=== PATIENT | female | born 1985 | race Caucasian/White ===

== ENCOUNTER 2019-10-10 20:03 | Outpatient (CLI) | payer BC ==
[~2019-10-10] VITALS: Ht 170.2 cm; Wt 126.4 kg
[2019-10-10] MEDS ORDERED: LEXAPRO20 MG PO (20:27)
[2019-10-10] MEDS ORDERED: PRENATAL MVI (20:28)
[2019-10-10 20:30] VITALS: BP 129/70; PULSE 88; TEMP 98.2
[2019-10-10 21:00] VITALS: BP 120/85; PULSE 86
[2019-10-10 21:30] VITALS: BP 131/73; PULSE 81
--- NOTE | 2019-10-10 21:30 | NUR ---
2009- Patient ambulatory to LR5 from ED. Patient oriented to room and into restroom to void and change into gown. 2013- EFM and TOCO on and tracing. Patient has complaints of contractions every 5 minutes for the last hour. Patient states baby is "moving a lot." Patient denies LOF, bleeding, or spotting. 2024- SVE CL/-3 by SUNITA Christensen. 2109- See Physician Notification. 2124- SVE CL/-3 by SUNITA Christensen. SVE unchanged from previous SVE. 2129- EFM and TOCO off. Discharge instructions explained to patient in depth. Questions encouraged and answered. Patient to follow up with [facility] this week. 2144- Patient ambulatory off unit.
== END 2019-10-10 21:45 | disposition home or self-care (01) ==
LOC: LDRO 20:03
DX: O62.9 Abnormality of forces of labor, unspecified (principal); Z3A.37 37 weeks gestation of pregnancy

== ENCOUNTER 2019-10-22 19:40 | Outpatient (CLI) | payer BC ==
[~2019-10-22] VITALS: Ht 170.2 cm; Wt 129.1 kg
[2019-10-22] VITALS (7 sets, daily range): BP systolic 119–143; BP diastolic 71–96; PULSE 66–80; TEMP 97.7
[~2019-10-22 19:40] MED LIST: LEXAPRO20 MG PO; PRENATAL MVI
--- NOTE | 2019-10-22 19:40 | NUR ---
PT ARRIVED TO UNIT AMBULATORY WITH COMPLAINTS OF CONTRACTIONS. ORIENTED TO ROOM, CHANGED INTO GOWN, EFMX2 APPLIED, VS OBTAINED, AND SVE PERFORMED.
[2019-10-22 21:35] LABS: COLLECTION METHOD CLEAN CATCH
[2019-10-22 21:51] LABS: HEMOGLOBIN 10.4 g/dl (12.5-16.0); MEAN CELL VOLUME 86 fl (80.0-100.0); MEAN CORPUSCULAR HEMOGLOBIN 27 pg (27.0-31.0); MEAN CORPUSCULAR HGB CONC 32 g/dl (33.0-37.0); MEAN PLATELET VOLUME 9.6 fl (7.4-10.4); PLATELET COUNT 226 K/mm3 (130-400); RED BLOOD COUNT 3.85 M/mm3 (4.10-5.30); REDCELL DISTRIBUTION WIDTH-CV 14.7 % (11.5-14.5)
[2019-10-22 21:52] LABS: ALBUMIN 3.5 gm/dL (3.5-5.0); BILIRUBIN,TOTAL 0.2 mg/dL (0.0-1.0); CALCIUM 9.6 mg/dL (8.4-10.2); CREATININE, serum 0.6 (0.52-1.25); POTASSIUM 3.9 mmol/L (3.4-5.0); TOTAL PROTEIN 6.7 gm/dL (6.4-8.2)
[2019-10-22 22:06] LABS: HEMATOCRIT 32.9 % (37.0-47.0)
[2019-10-22 22:14] LABS: MUCOUS Present /lpf; PH 7 (5-8); SQUAMOUS EPITHELIAL 0-2 /hpf; URINE APPEARANCE Clear; URINE BACTERIA Rare /hpf; URINE BILIRUBIN Negative (NEGATIVE); URINE BLOOD Negative (NEGATIVE); URINE COLOR Straw; URINE GLUCOSE Negative (NEGATIVE); URINE KETONE Trace (NEGATIVE); URINE LEUKOCYTE ESTERASE Negative (NEGATIVE); URINE NITRATE Negative (NEGATIVE); URINE PROTEIN(semi-quant) Negative (NEGATIVE); URINE RBC 0-2 /hpf; URINE UROBILINOGEN Negative (NEGATIVE); URINE WBC 0-2 /hpf
--- NOTE | 2019-10-22 22:22 | NUR ---
PT MAY DC HOME PER DR. KATZ. MONITORING DC'D AT THIS TIME.
[2019-10-22 22:38] LABS: BAND 10 % (0-10); BASOPHIL 5 % (0-2); LYMPHOCYTE 19 % (20.0-51.0); NEUTROPHILS 59 % (42.0-75.2)
--- NOTE | 2019-10-22 22:40 | NUR ---
DISCHARGE INSTRUCTIONS REVIEWED WITH PT AND SPOUSE, QUESTIONS ENCOURAGED AND ANSWERED. PT LEFT THE UNIT AMBULATORY WITH SPOUSE FOR HOME.
== END 2019-10-22 22:40 | disposition home or self-care (01) ==
LOC: LDR 19:40 → LDRO 19:40
PROVIDERS: Obstetrics & Gynecology
DX: O62.9 Abnormality of forces of labor, unspecified (principal); Z3A.38 38 weeks gestation of pregnancy
CPT/HCPCS: OP

== ENCOUNTER 2022-09-06 05:46 | Inpatient (IN) | payer BC ==
[2022-09-06] VITALS (20 sets, daily range): BP systolic 90–140; BP diastolic 47–87; PULSE 60–93; TEMP 97–98.1
[~2022-09-06] VITALS: Ht 170.3 cm; Wt 122.7 kg
[~2022-09-06 05:46] MED LIST changes: +00186-0372-20 IH; +ASPIRIN 81M81 MG/TA2 PO; +CEFTIN 250250 MG/TAB PO; +MAGNESIUM200 MG PO; +MOTRIN 800800 MG/TAB PO; +PERCOCET 325 MG1 TA2 PO; +PRILOSEC10 MG PO; +VENTOLIN0.09 MG IH
--- NOTE | 2022-09-06 05:55 | NUR ---
0555 ADM TO 209 FOR REPEAT C/S. EFM ON. VS DONE. PERMITS SIGNED. IV STARTED AND LAB OBTAINED.
[2022-09-06 06:37] LABS: BASO # 0.1 K/mm3 (0.0-0.2); BASO % 0.7 % (0.0-2.0); EOS # 0.1 K/mm3 (0.0-0.7); EOS % 0.5 % (0.0-4.0); GRAN # 6.5 K/mm3 (1.4-6.5); GRAN % 66.9 % (42.2-75.2); HEMATOCRIT 34.7 % (37.0-47.0); HEMOGLOBIN 11.9 g/dl (12.5-16.0); LYMPH # 2.3 K/mm3 (1.2-3.4); LYMPH % 23.6 % (20.0-51.0); MEAN CELL VOLUME 91 fl (80.0-100.0); MEAN CORPUSCULAR HEMOGLOBIN 31 pg (27-31); MEAN CORPUSCULAR HGB CONC 34 g/dl (33.0-37.0); MEAN PLATELET VOLUME 10.1 fl (7.4-10.4); MONO # 0.7 K/mm3 (0.1-0.6); MONO % 7.5 % (1.7-9.3); PLATELET COUNT 205 K/mm3 (130-400); RED BLOOD COUNT 3.83 M/mm3 (4.10-5.30); REDCELL DISTRIBUTION WIDTH-CV 13.9 % (11.5-14.5)
[2022-09-07 01:03] VITALS: BP 119/65; PULSE 71; TEMP 98.4
[2022-09-07 03:35] VITALS: BP 108/56; PULSE 71; TEMP 97.5
[2022-09-07 07:15] VITALS: BP 114/68; PULSE 72; TEMP 97.5
[2022-09-07 16:17] VITALS: BP 114/70; PULSE 85; TEMP 98
[2022-09-07 21:20] VITALS: BP 117/74; PULSE 66; TEMP 97.7
[2022-09-08 07:50] VITALS: BP 118/73; PULSE 73; TEMP 97.3
--- NOTE | 2022-09-08 12:26 | NUR ---
1030 PATIENT SHOWERED INDEPENDENTLY. THIS NURSE ASSESSED ABDOMINAL INCISION. NO BLEEDING OR DRAINAGE PRESENT.
[2022-09-08 16:28] VITALS: BP 111/63; PULSE 79; TEMP 97.9
[2022-09-08 21:37] VITALS: BP 126/63; PULSE 82; TEMP 98.7
[2022-09-09 06:45] VITALS: BP 129/58; PULSE 107; TEMP 97.3
[2022-09-09] MEDS ORDERED: MOTRIN 800800 MG/TAB PO (08:34)
[2022-09-09] MEDS ORDERED: PERCOCET 325 MG1 TA2 PO (08:34)
--- NOTE | 2022-09-09 09:18 | NUR ---
Initial visit; Parents thanked Supervisor Operations for offering congratulations and God's blessings for the of their son. Supervisor Operations thanked family for choosing [place].
--- NOTE | 2022-09-09 09:19 | NUR ---
Initial visit; Parents thanked Mash Tub Cooker Operator for offering congratulations and God's blessings for the of their son. Mash Tub Cooker Operator thanked family for choosing [place] and is pleased to hear their stay has been a very pleasant one.
== END 2022-09-09 12:48 | disposition home or self-care (01) | DRG 788 ==
LOC: OB 05:46
PROVIDERS: ADMIT Obstetrics & Gynecology
PROC: 10D00Z1 Extraction of Products of Conception, Low, Open Approach (ICD-10-PCS; principal; 2022-09-06)
DX: O34.211 Maternal care for low transverse scar from previous cesarean delivery (principal); O99.214 Obesity complicating childbirth; O99.52 Diseases of the respiratory system complicating childbirth; J45.909 Unspecified asthma, uncomplicated; O99.344 Other mental disorders complicating childbirth; F32.A Depression, unspecified; Z3A.39 39 weeks gestation of pregnancy; Z37.0 Single live birth; Z86.16 Personal history of COVID-19; Z88.0 Allergy status to penicillin
CPT/HCPCS: J0690; J1100; J1885; J2405; J2590; J7120

== ENCOUNTER 2023-12-03 23:57 | Outpatient (CLI) | payer OTHER, BC ==
[~2023-12-03] VITALS: Ht 162.6 cm; Wt 116.8 kg
[~2023-12-03 23:57] MED LIST changes: +TUMS500 MG
--- NOTE | 2023-12-04 00:10 | NUR ---
PT TO UNIT VIA WHEELCHAIR WITH COMPLIANTS OF CTX EVERY 5 MINUTES SINCE APPROXIMATELY 2100 THIS EVENING. PT IS A G4L2 WITH HX OF C/SX2. PT DENIES LOF, OR VAGINAL BLEEDING, STATES GOOD MOVEMENT. EFMX2 APPLIED, VS OBTAINED, AND SVE PERFORMED.
[2023-12-04 00:30] VITALS: BP 130/62; PULSE 84; TEMP 97.7
[2023-12-04 01:00] VITALS: BP 102/64; PULSE 80
[2023-12-04] MEDS ORDERED: LR 1,000 ML IV PRN (01:00)
[2023-12-04 01:30] VITALS: BP 122/67; PULSE 72
[2023-12-04] MEDS ORDERED: Acetaminophen 500 MG TAB PO ONE (01:45)
[2023-12-04 02:00] VITALS: BP 101/68; PULSE 73
[2023-12-04 02:34] VITALS: BP 166/69; PULSE 86
--- NOTE | 2023-12-04 02:45 | NUR ---
0228- SVE REMAINS UNCHANGED AFTER ADDITIONAL HOUR OF MONITORING. PT CONTINUES TO RATE PAIN AT 7/10. NO RELIEVE YET WITH TYLENOL AND VISTARIL. CONTRACTIONS CONTINUE EVERY 2-5 MINUTES WITH CAT 1 FHTs. PT EDUCATED WHEN TO RETURN TO THE UNIT FOR FURTHER EVALUATION. UNDERSTANDING VERBALIZED. MONITORING DCd. PT TO CHANGE WHILE DISCHARGE PAPERWORK PREPARED. 0245- DISCHARGE INSTRUCTIONS REVIEWED WITH PT. PT TO RETURN TO UNIT IF HER WATER BREAKS, SHE HAS VAGINAL BLEEDING, OR HER CONTRACTIONS BECOME MORE CONSISTENT OR PAINFUL. PT VERBALIZES UNDERSTANDING. PT OFF UNIT AMBULATORY WITH SPOUSE.
== END 2023-12-04 02:45 | disposition home or self-care (01) ==
LOC: LDRO 23:57
DX: O26.893 Other specified pregnancy related conditions, third trimester (principal); E75.5 Other lipid storage disorders; Z3A.36 36 weeks gestation of pregnancy

== ENCOUNTER 2023-12-15 18:20 | Inpatient (IN) | payer OTHER, BC ==
[2023-12-23] MEDS ORDERED: LR 1,000 ML IV SCH (10:45)
[2023-12-23 11:40] LABS: BASO % 0.5 % (0.0-2.0); EOS # 0.1 K/mm3 (0.0-0.7); EOS % 0.6 % (0.0-4.0); GRAN # 6.7 K/mm3 (1.4-6.5); GRAN % 79.1 % (42.2-75.2); HEMOGLOBIN 12.3 g/dl (12.5-16.0); LYMPH # 1.1 K/mm3 (1.2-3.4); LYMPH % 12.4 % (20.0-51.0); MEAN CELL VOLUME 91 fl (80.0-100.0); MEAN CORPUSCULAR HEMOGLOBIN 31 pg (27-31); MEAN CORPUSCULAR HGB CONC 34 g/dl (33.0-37.0); MEAN PLATELET VOLUME 10.2 fl (7.4-10.4); MONO # 0.6 K/mm3 (0.1-0.6); MONO % 6.7 % (1.7-9.3); PLATELET COUNT 188 K/mm3 (130-400); RED BLOOD COUNT 4.03 M/mm3 (4.10-5.30); REDCELL DISTRIBUTION WIDTH-CV 14.2 % (11.5-14.5)
[2023-12-23 11:47] LABS: HEMATOCRIT 36.5 % (37.0-47.0)
--- NOTE | 2024-01-19 13:54 | NUR ---
DOWNTIME NOTE: An Electronic Health Record (EHR) downtime event occurred during this patient's care. For legal medical record information generated during the downtime period, please reference the patient's legal medical record. Paper or scanned documentation has been incorporated into the legal medical record which is maintained in accordance with Health Information Management (HIM) and record retention policies.
== END 2023-12-25 19:00 | disposition home or self-care (01) | DRG 788 ==
LOC: OB 12-23 09:37
PROVIDERS: ADMIT Obstetrics & Gynecology
PROC: 10D00Z1 Extraction of Products of Conception, Low, Open Approach (ICD-10-PCS; principal; 2023-12-23)
DX: O34.211 Maternal care for low transverse scar from previous cesarean delivery (principal); Z3A.39 39 weeks gestation of pregnancy; Z37.0 Single live birth

== ENCOUNTER 2024-07-14 10:17 | Emergency (ER) | payer OTHER, BC ==
[~2024-07-14] VITALS: Ht 170.2 cm; Wt 113.6 kg
[2024-07-14 10:32] VITALS: BP 120/74; PULSE 68; TEMP 97.5
[2024-07-14] MEDS ORDERED: Ibuprofen 400 MG TAB PO ONE (10:45)
== END 2024-07-14 12:05 | disposition home or self-care (01) ==
LOC: COL.ER 10:17
DX: S93.402A Sprain of unspecified ligament of left ankle, initial encounter (principal); W18.30XA Fall on same level, unspecified, initial encounter; Y93.01 Activity, walking, marching and hiking